=== PATIENT | female | born 1980 | race American Indian/Alaskan Native ===

== ENCOUNTER 2018-11-29 13:47 | Emergency (ER) | payer SELFPAY ==
[2018-11-29 14:13] VITALS: BP 131/62
[2018-11-29 14:48] LABS: Bacteria,Urine 1+ /HPF (Negative); Bilirubin,Urine NEG (Negative); Blood,Urine NEG (Negative); Color,Urine Yellow (Yellow); Mucus,Urine FEW /HPF; Protein,Urine <15 mg/dL mg/dL (Negative); Urobilinogen,Urine < 2.0 mg/dL (<2.0)
--- NOTE | 2018-11-29 15:24 | Emergency Department Report ---
- General Chief complaint: Skin/Abscess/Foreign Body Stated complaint: ABCESS ON BUTTOCK/WITH SITTER Time Seen by Provider: 11/29/18 14:40 Source: patient, EMS Mode of arrival: Stretcher Limitations: No Limitations - History of Present Illness Initial comments: 38-year-old female presents to ED with abscess to right buttock 3 days. Patient is currently inpatient at [facility]. States she has been receiving doxycycline for the last 2 days. Patient states she had a large "rising" to the right buttock. However, patient reports when she went to the catheter since being here in the ED, it burst open and drained a large amount of pus which she states was all over the floor. MD complaint: abscess/boil -: days(s) (3) Location: buttocks Severity: moderate Quality: aching Consistency: constant Improves with: none Worsens with: palpation, other (sitting) Associated symptoms: denies other symptoms Treatments Prior to Arrival: antibiotic (doxycycline) - Related Data Allergies Allergy/AdvReac Type Severity Reaction Status Date / Time Penicillins Allergy Unknown Verified 11/29/18 14:05 Abscess Boil HPI - HPI Chief Complaint: Skin/Abscess/Foreign Body Stated Complaint: ABCESS ON BUTTOCK/WITH SITTER Time Seen by Provider: 11/29/18 14:40 Allergies/Adverse Reactions: Allergies Allergy/AdvReac Type Severity Reaction Status Date / Time Penicillins Allergy Unknown Verified 11/29/18 14:05 ED Review of Systems ROS: Stated complaint: ABCESS ON BUTTOCK/WITH SITTER Other details as noted in HPI Comment: All other systems reviewed and negative Constitutional: denies: chills, fever Gastrointestinal: denies: nausea, vomiting Skin: other (reports abscess) ED Past Medical Hx - Past Medical History Previous Medical History?: Yes Hx Hypertension: Yes - Social History Smoking Status: Current Every Day Smoker ED Physical Exam - General Limitations: No Limitations General appearance: alert, in no apparent distress - Head Head exam: Present: atraumatic, normocephalic - Eye Eye exam: Present: normal appearance - ENT ENT exam: Present: mucous membranes moist - Neck Neck exam: Present: normal inspection - Respiratory Respiratory exam: Present: normal lung sounds bilaterally. Absent: respiratory distress - Cardiovascular Cardiovascular Exam: Present: regular rate, normal rhythm - GI/Abdominal GI/Abdominal exam: Present: soft. Absent: distended, tenderness - Extremities Exam Extremities exam: Present: normal inspection - Neurological Exam Neurological exam: Present: alert, oriented X3 - Psychiatric Psychiatric exam: Present: normal affect, normal mood - Skin Skin exam: Present: other (recently ruptured abscess to right buttock, no erythema, mild induration, currently draining purulent discharge) ED Course Vital Signs 11/29/18 14:11 Temperature 98.8 F Pulse Rate 94 H Respiratory 18 Rate Blood Pressure 131/62 O2 Sat by Pulse 100 Oximetry ED Medical Decision Making - Medical Decision Making - sent for I&D of buttock abscess - spontaneous rupture of abscess with large amt of drainage per pt - abscess is open and currently draining - offered to open further w/ blade and pack, but pt refused - pt to continue abx at [place] Critical care attestation.: If time is entered above; I have spent that time in minutes in the direct care of this critically ill patient, excluding procedure time. ED Disposition Clinical Impression: Abscess of right buttock Disposition: DC-01 TO HOME OR SELFCARE Is pt being admited?: No Condition: Stable Instructions: Abscess (ED) Referrals: NISHI GALLARDO MD [Primary Care Provider] - 3-5 Days Time of Disposition: 15:25
== END 2018-11-29 17:17 | disposition home or self-care (01) ==
LOC: ED 13:47
DX: L02.31 Cutaneous abscess of buttock (principal); I10 Essential (primary) hypertension; F17.200 Nicotine dependence, unspecified, uncomplicated; Z88.0 Allergy status to penicillin
CPT/HCPCS: 81001; 99285